=== PATIENT | male | born 1990 | race Caucasian/White ===

== ENCOUNTER 2017-05-18 23:02 | Emergency (ER) | payer SELFPAY ==
--- NOTE | 2017-05-18 23:08 | EDM.PDOC ---
ED HPI GENERAL MEDICAL PROBLEM - General Stated Complaint: BEHAVIORAL/INTOXICATED Time Seen by Provider: 05/18/17 23:08 Source of Information: Reports: Patient - History of Present Illness INITIAL COMMENTS - FREE TEXT/NARRATIVE: HISTORY AND PHYSICAL: History of present illness: []Patient presents to the ER via ambulance with police under arrest is currently in handcuffs On arrival he was quite anxious and agitated and belligerent, he attempted to evade police running through traffic, he is currently intoxicated, apparently police were called to a domestic sputum dispute that did not involve the patient however he ran from them when they arrived on the scene and was not part of the dispute that they were called to, he was simply at the parking lot of an apartment complex. he is provided 1 mg of Ativan and fluids on arrival ; currently he is not anxious very cooperative he is intoxicated but in no distress and is being very forthright with communication and friendly at current and cooperative. Hence, police are going to let him go from their standpoint and are arranging a ride for him home No fever nausea vomiting chills sweats no chest pain shortness breath headache dizziness or palpitation no bowel or urine symptoms denies suicidal homicidal ideation Denies chronic illness disease medications Review of systems: As per history of present illness and below otherwise all systems reviewed and negative. Past medical history: As per history of present illness and as reviewed below otherwise noncontributory. Surgical history: As per history of present illness and as reviewed below otherwise noncontributory. Social history: No reported history of drug or alcohol abuse. Family history: As per history of present illness and as reviewed below otherwise noncontributory. Physical exam: HEENT: Atraumatic, normocephalic, pupils reactive, negative for conjunctival pallor or scleral icterus, mucous membranes moist, throat clear, neck supple, nontender, trachea midline. Lungs: Clear to auscultation, breath sounds equal bilaterally, chest nontender. Heart: S1S2, regular, negative for clicks, rubs, or JVD. Abdomen: Soft, nondistended, nontender. Negative for masses or hepatosplenomegaly. Negative for costovertebral tenderness. Pelvis: Stable nontender. Genitourinary: Deferred. Rectal: Deferred. Extremities: Atraumatic, negative for cords or calf pain. Neurovascular unremarkable. Neuro: Awake, alert, oriented. Cranial nerves II through XII unremarkable. Cerebellum unremarkable. Motor and sensory unremarkable throughout. Exam nonfocal. Diagnostics: []Lab as below EKG Chest 1 view Therapeutics: []1 L normal saline bolus Banana bag 1 L Ativan 1 mg IV Police will be returning the patient to his home Impression: EtOH intoxication Sinus tachycardia rate 119 Definitive disposition and diagnosis as appropriate pending reevaluation and review of above. - Related Data Allergies Allergy/AdvReac Type Severity Reaction Status Date / Time doxycycline Allergy throat Verified 05/18/17 23:28 swelling shellfish derived Allergy throat Verified 05/18/17 23:28 swelling Home Meds: Home Meds . [No Known Home Meds] 05/18/17 [History] ED ROS GENERAL - Review of Systems Review Of Systems: ROS reveals no pertinent complaints other than HPI. ED EXAM, GENERAL - Physical Exam Exam: See Below Course - Vital Signs Last Recorded V/S: Last Vital Signs Temp 36.6 C 05/19/17 00:52 Pulse 131 H 05/19/17 00:52 Resp 20 05/19/17 00:52 BP 125/69 05/19/17 00:52 Pulse Ox 96 05/19/17 00:52 - Orders/Labs/Meds Orders: Active Orders 24 hr Category Date Time Status EKG Documentation Completion [RC] STAT Care 05/18/17 23:05 Active Chest 1V Frontal [CR] Stat Exams 05/18/17 23:05 Taken MVI, Adult with Vitamin K [Infuvite Adult] 10 ml Med 05/19/17 00:18 Active Thiamine [Vitamin B-1] 100 mg Folic Acid 1 mg Sodium Chloride 0.9% [Normal Saline] 1,000 ml IV ONETIME Medication Orders Multivitamins/Minerals 10 ml/Thiamine HCl 100 mg/ Folic Acid 1 mg/ Sodium Chloride 1,011.2 mls @ 999 mls/hr IV ONETIME ONE Stop: 05/19/17 01:18 Last Admin: 05/19/17 00:37 Dose: 999 mls/hr Labs: Laboratory Tests 05/18/17 05/18/17 05/18/17 Range/Units 23:22 23:22 23:22 WBC 12.77 H (4.0-11.0) K/uL RBC 5.03 (4.50-5.90) M/uL Hgb 15.6 (13.0-17.0) g/dL Hct 44.9 (38.0-50.0) % MCV 89.3 (80.0-98.0) fL MCH 31.0 (27.0-32.0) pg MCHC 34.7 (31.0-37.0) g/dL RDW Std Deviation 44.1 (28.0-62.0) fl RDW Coeff of Dario 14 (11.0-15.0) % Plt Count 306 (150-400) K/uL MPV 9.30 (7.40-12.00) fL Neut % (Auto) 69.7 (48.0-80.0) % Lymph % (Auto) 23.6 (16.0-40.0) % [place] % (Auto) 5.5 (0.0-15.0) % Eos % (Auto) 1.0 (0.0-7.0) % Baso % (Auto) 0.2 (0.0-1.5) % Neut # (Auto) 8.9 H (1.4-5.7) K/uL Lymph # (Auto) 3.0 H (0.6-2.4) K/uL [place] # (Auto) 0.7 (0.0-0.8) K/uL Eos # (Auto) 0.1 (0.0-0.7) K/uL Baso # (Auto) 0.0 (0.0-0.1) K/uL Nucleated RBC % 0.0 /100WBC Nucleated RBCs # 0 K/uL Sodium 144 (136-146) mmol/L Potassium 3.9 (3.5-5.1) mmol/L Chloride 114 H (98-110) mmol/L Carbon Dioxide 17 L (21-31) mmol/L BUN 19 (6.0-23.0) mg/dL Creatinine 1.1 (0.6-1.5) mg/dL Est Cr Clr Drug Dosing 118.43 mL/min Estimated GFR (MDRD) > 60.0 ml/min Glucose 113 H (60-110) mg/dL Calcium 8.9 (8.8-10.8) mg/dL Total Bilirubin 0.3 (0.1-1.5) mg/dL AST 23 (5-40) IU/L ALT 21 (8-54) IU/L Alkaline Phosphatase 93 (40-150) Troponin I < 0.10 (0.0-0.29) NG/ML Total Protein 7.5 (6.0-8.0) g/dL Albumin 4.5 (3.5-5.0) g/dL Globulin 3.0 (2.0-3.5) g/dL Albumin/Globulin Ratio 1.5 (1.3-2.8) TSH 3rd Generation 0.97 (0.47-5.0) uIU/mL Urine Color Urine Appearance Urine pH (5.0-8.0) Ur Specific [place] (1.001-1.035) Urine Protein (NEGATIVE) mg/dL Urine Glucose (UA) (NEGATIVE) mg/dL Urine Ketones (NEGATIVE) mg/dL Urine Occult Blood (NEGATIVE) Urine Nitrite (NEGATIVE) Urine Bilirubin (NEGATIVE) Urine Urobilinogen (<2.0) EU/dL Ur Leukocyte Esterase (NEGATIVE) Urine RBC (0-2/HPF) Urine WBC (0-5/HPF) Ur Epithelial Cells (NONE-FEW) Urine Bacteria (NEGATIVE) Urine Mucus (NONE-MOD) Salicylates < 5.0 (0-20) mg/dL Urine Opiates Screen (NEGATIVE) Ur Oxycodone Screen (NEGATIVE) Urine Methadone Screen (NEGATIVE) Acetaminophen < 3.0 ug/mL Ur Barbiturates Screen (NEGATIVE) Ur Phencyclidine Scrn (NEGATIVE) Ur Amphetamine Screen (NEGATIVE) U Methamphetamines Scrn (NEGATIVE) U Benzodiazepines Scrn (NEGATIVE) U Cocaine Metab Screen (NEGATIVE) U Marijuana (THC) Screen (NEGATIVE) Ethyl Alcohol 286.9 mg/dL 05/19/17 05/19/17 Range/Units 00:20 00:20 WBC (4.0-11.0) K/uL RBC (4.50-5.90) M/uL Hgb (13.0-17.0) g/dL Hct (38.0-50.0) % MCV (80.0-98.0) fL MCH (27.0-32.0) pg MCHC (31.0-37.0) g/dL RDW Std Deviation (28.0-62.0) fl RDW Coeff of Dario (11.0-15.0) % Plt Count (150-400) K/uL MPV (7.40-12.00) fL Neut % (Auto) (48.0-80.0) % Lymph % (Auto) (16.0-40.0) % [place] % (Auto) (0.0-15.0) % Eos % (Auto) (0.0-7.0) % Baso % (Auto) (0.0-1.5) % Neut # (Auto) (1.4-5.7) K/uL Lymph # (Auto) (0.6-2.4) K/uL [place] # (Auto) (0.0-0.8) K/uL Eos # (Auto) (0.0-0.7) K/uL Baso # (Auto) (0.0-0.1) K/uL Nucleated RBC % /100WBC Nucleated RBCs # K/uL Sodium (136-146) mmol/L Potassium (3.5-5.1) mmol/L Chloride (98-110) mmol/L Carbon Dioxide (21-31) mmol/L BUN (6.0-23.0) mg/dL Creatinine (0.6-1.5) mg/dL Est Cr Clr Drug Dosing mL/min Estimated GFR (MDRD) ml/min Glucose (60-110) mg/dL Calcium (8.8-10.8) mg/dL Total Bilirubin (0.1-1.5) mg/dL AST (5-40) IU/L ALT (8-54) IU/L Alkaline Phosphatase (40-150) Troponin I (0.0-0.29) NG/ML Total Protein (6.0-8.0) g/dL Albumin (3.5-5.0) g/dL Globulin (2.0-3.5) g/dL Albumin/Globulin Ratio (1.3-2.8) TSH 3rd Generation (0.47-5.0) uIU/mL Urine Color YELLOW Urine Appearance CLEAR Urine pH 5.5 (5.0-8.0) Ur Specific [place] 1.010 (1.001-1.035) Urine Protein NEGATIVE (NEGATIVE) mg/dL Urine Glucose (UA) NEGATIVE (NEGATIVE) mg/dL Urine Ketones NEGATIVE (NEGATIVE) mg/dL Urine Occult Blood NEGATIVE (NEGATIVE) Urine Nitrite NEGATIVE (NEGATIVE) Urine Bilirubin NEGATIVE (NEGATIVE) Urine Urobilinogen 0.2 (<2.0) EU/dL Ur Leukocyte Esterase NEGATIVE (NEGATIVE) Urine RBC 0-1 (0-2/HPF) Urine WBC 0-3 (0-5/HPF) Ur Epithelial Cells RARE (NONE-FEW) Urine Bacteria RARE (NEGATIVE) Urine Mucus LIGHT (NONE-MOD) Salicylates (0-20) mg/dL Urine Opiates Screen NEGATIVE (NEGATIVE) Ur Oxycodone Screen NEGATIVE (NEGATIVE) Urine Methadone Screen NEGATIVE (NEGATIVE) Acetaminophen ug/mL Ur Barbiturates Screen NEGATIVE (NEGATIVE) Ur Phencyclidine Scrn NEGATIVE (NEGATIVE) Ur Amphetamine Screen NEGATIVE (NEGATIVE) U Methamphetamines Scrn NEGATIVE (NEGATIVE) U Benzodiazepines Scrn NEGATIVE (NEGATIVE) U Cocaine Metab Screen NEGATIVE (NEGATIVE) U Marijuana (THC) Screen NEGATIVE (NEGATIVE) Ethyl Alcohol mg/dL Meds: Medications Generic Name Dose Route Start Last Admin Trade Name Freq PRN Reason Stop Dose Admin Multivitamins/Minerals 10 ml/ 1,011.2 mls @ 999 mls/hr 05/19/17 00:18 00:37 Thiamine HCl 100 mg/ Folic IV 05/19/17 01:18 999 mls/hr Acid 1 mg/ Sodium Chloride ONETIME ONE Administration Discontinued Medications Generic Name Dose Route Start Last Admin Trade Name Freq PRN Reason Stop Dose Admin Sodium Chloride 1,000 mls @ 999 mls/hr 05/18/17 23:10 05/18/17 23:33 Normal Saline IV 05/19/17 00:10 999 mls/hr STAT ONE Administration Lorazepam 1 mg 05/18/17 23:32 05/18/17 23:38 Ativan IVPUSH 05/18/17 23:33 1 mg ONETIME ONE Administration Departure - Departure Time of Disposition: 01:10 Disposition: Home, Self-Care 01 Condition: Good Clinical Impression: Alcohol intoxication - Discharge Information Additional Instructions: The following information is given to patients seen in the emergency department who are being discharged to home. This information is to outline your options for follow-up care. We provide all patients seen in our emergency department with a follow-up referral. The need for follow-up, as well as the timing and circumstances, are variable depending upon the specifics of your emergency department visit. If you don't have a primary care physician on staff, we will provide you with a referral. We always advise you to contact your personal physician following an emergency department visit to inform them of the circumstance of the visit and for follow-up with them and/or the need for any referrals to a consulting specialist. The emergency department will also refer you to a specialist when appropriate. This referral assures that you have the opportunity for follow-up care with a specialist. All of these measure are taken in an effort to provide you with optimal care, which includes your follow-up. Under all circumstances we always encourage you to contact your private physician who remains a resource for coordinating your care. When calling for follow-up care, please make the office aware that this follow-up is from your recent emergency room visit. If for any reason you are refused follow-up, please contact the [facility] emergency department at and asked to speak to the emergency department charge nurse. - My Orders Last 24 Hours: My Active Orders 05/18/17 23:05 EKG Documentation Completion [RC] STAT Chest 1V Frontal [CR] Stat 05/19/17 00:18 MVI, Adult with Vitamin K [Infuvite Adult] 10 ml Thiamine [Vitamin B-1] 100 mg Folic Acid 1 mg Sodium Chloride 0.9% [Normal Saline] 1,000 ml IV ONETIME - Assessment/Plan Last 24 Hours: My Active Orders 05/18/17 23:05 EKG Documentation Completion [RC] STAT Chest 1V Frontal [CR] Stat 05/19/17 00:18 MVI, Adult with Vitamin K [Infuvite Adult] 10 ml Thiamine [Vitamin B-1] 100 mg Folic Acid 1 mg Sodium Chloride 0.9% [Normal Saline] 1,000 ml IV ONETIME
[2017-05-18] MEDS ORDERED: Sodium Chloride 0.9% 1,000 ML IV ONE (23:10)
[2017-05-18] MEDS ORDERED: LORazepam 2 MG/ML MDV IVPUSH ONE (23:32)
[2017-05-18 23:51] LABS: CHLORIDE,CL 114 mmol/L (98-110); SODIUM,NA 144 mmol/L (136-146)
[2017-05-18 23:55] LABS: ACETAMINOPHEN < 3.0 ug/mL
[2017-05-19] MEDS ORDERED: MVI, Adult with Vitamin K 10 ML, Thiamine 100 MG, Folic Acid 1 MG in Sodium Chloride 0.... IV ONE ×4 (00:18)
[2017-05-19 01:14] VITALS: BP 129/78
--- NOTE | 2017-05-19 15:20 | CR ---
EXAM DATE: 05/18/17 PATIENT'S AGE: 26 Patient: SANA MADRID Facility: [place], [place] Site . Site : 1990 Study: XRay Chest [id number] 11:41:11 PM Ordering Physician: Miky Light Final Report: Indication: Pain Technique: Chest 1 view Comparison: None Findings/Impression: Cardiovascular and mediastinum: Heart size and vasculature are normal in caliber and appearance. Mediastinum is within normal limits. Lungs and pleural space: Lungs are clear. No sign of infiltrate or mass. No sign of pleural effusion. No pneumothorax. Bones and soft tissues: No significant findings. Dictated by Haleigh Rivera MD @ May 18 2017 11:52PM (Electronic Signature) Report Signed by Proxy. RM
== END 2017-05-19 01:20 | disposition home or self-care (01) ==
LOC: MW.ED 23:02
DX: F10.129 Alcohol abuse with intoxication, unspecified (principal); R00.0 Tachycardia, unspecified; Z88.1 Allergy status to other antibiotic agents; Z91.013 Allergy to seafood
CPT/HCPCS: 36415; 71010; 80053; 80305; 81001; 84443; 84484; 85025; 93005; 96361; 96365; 96375; 99284; G0480; J2060; J3411; J7040